=== PATIENT | male | born 1975 | race African-American/Black ===

== ENCOUNTER 2018-03-25 17:29 | Emergency (ER) | payer MEDICAID ==
[~2018-03-25] VITALS: Ht 177.8 cm; Wt 90.0 kg
[2018-03-25 17:35] VITALS: BP 139/96
== END 2018-03-25 23:07 | disposition home or self-care (01) ==
LOC: ER 18:42
DX: M79.604 Pain in right leg (principal); R25.2 Cramp and spasm; Z59.0 Homelessness
CPT/HCPCS: 99283